=== PATIENT | female | born 1985 | race American Indian/Alaskan Native ===

== ENCOUNTER 2016-11-14 18:58 | Emergency (ER) | payer SELFPAY ==
[2016-11-14 19:43] VITALS: BP 127/75
--- NOTE | 2016-11-14 20:33 | XRay Report ---
FINAL REPORT PROCEDURE: XR ANKLE 3+V RT TECHNIQUE: RIGHT ankle radiographs, AP and lateral views. HISTORY: swollen and painful rt ankle COMPARISON: No prior studies are available for comparison. FINDINGS: Fracture (s) and/or Dislocation(s): There is fracture of the tibial plafond. There is screw in the distal fibula. Alignment: Normal. Joint space(s): Normal. Soft tissues: Normal. Bone mineralization: Diffuse demineralization Foreign bodies: Normal. Calcaneal spurring: Normal. IMPRESSION: Tibial plafond fracture.
== END 2016-11-15 03:55 | disposition left against medical advice (07) ==
LOC: ED 18:58
DX: M25.571 Pain in right ankle and joints of right foot (principal); M25.471 Effusion, right ankle; F17.200 Nicotine dependence, unspecified, uncomplicated; Z53.21 Procedure and treatment not carried out due to patient leaving prior to being seen by health care provider